=== PATIENT | female | born 1995 | race Caucasian/White ===

== ENCOUNTER 2025-03-08 12:02 | Inpatient (IN) | payer MEDICAID, OTHER ==
[2025-03-08] VITALS (16 sets, daily range): BP systolic 101–145; BP diastolic 56–82; PULSE 53–77; RESP 11–21; TEMP 98.5; O2SAT 98–100
[~2025-03-08] VITALS: Ht 165.1 cm; Wt 95.2 kg
[~2025-03-08 12:02] MED LIST: CYCL-1 PO; IBUP-1986 PO; NO HOME MEDS; TRAM50TA2 PO
[2025-03-08 12:32] LABS: MEAN PLATELET VOLUME 8.6 FL (7.4-10.4); RED CELL DISTRIBUTION WIDTH 13.5 % (11.5-14.5)
[2025-03-08 12:39] LABS: LEUKOCYTE ESTERASE ,URINE NEGATIVE (Neg); NITRITES, URINE NEGATIVE (Neg); OCCULT BLOOD,URINE SMALL (Neg)
[2025-03-08 12:40] LABS: URINE HCG NEGATIVE (NEG)
[2025-03-08 12:43] LABS: UA COLLECTION TYPE CLN CATCH MIDSTREAM
[2025-03-08 12:45] LABS: MUCUS STRANDS NONE SEEN /LPF (Neg); SQUAMOUS EPITHELIAL CELL,UR FEW /LPF (FEW)
[2025-03-08 12:50] LABS: CREATININE 0.87 MG/DL (0.40-0.90); TOTAL CARBON DIOXIDE 27.1 MMOL/L (24-32); eCRCL 86 ML/MIN; eGFR 77 ML/MIN
--- NOTE | 2025-03-08 12:56 | Physician Documentation ---
History of Present Illness Chief Complaint: Abdominal Pain Stated Complaint: GALL BLADDER PAIN Time Seen by MD: 12:24 Primary Medical Doctor: dominick Mode of Arrival: Dropped Off HPI This 29-year-old female patient comes in for LUQ pain. pt is having nausea. pt has been getting a workup out pt for her gallbladder from [facility]. Dr. Borjas is aware of this patient and plans on taking the patient to the OR for cholecystectomy. [facility] Day of Onset: Mar 08, 2025 Medication Reconciliation Allergies: Coded Allergies: No Known Allergies (Unverified , 03/08/25) Scheduled Ibuprofen (Ibuprofen), 2 TAB PO Q6H, (Reported) Discontinued Medications Cyclobenzaprine* (Cyclobenzaprine*), 1 TABLET PO Q8H PRN for muscle spasms Discontinued Reason: Other Home Med List (No Home Medications), (Reported) Discontinued Reason: Other Ibuprofen (Ibuprofen), 1 TAB PO Q8H Discontinued Reason: Other Past Medical History Past Medical History: Anxiety Past Surgical History: orthopedic surgeries Smoking Status: Never smoker Alcohol Use: Occasionally Drug Use: marijuana Lives with: Family Lives In: Home Occupation: student Review of Systems All Other Systems at this time: Reviewed and Negative ROS As stated above in the HPI, otherwise all systems are reviewed and negative. Physical Exam Vital Signs: Temperature: 97.3, Source: Oral, Heart Rate: 61, Respiratory Rate: 12, BP: 129/70, Pulse Oximetry: 97, Weight: 95.200 Physical Exam General: Alert, no apparent distress. Gastrointestinal: Soft, tender right upper quadrant bowel sounds present Skin: Normal color, warm and dry. No edema, no ecchymosis. Progress Results/Orders Results/Orders Vital Signs 03/08/25 03/08/25 03/08/25 12:07 12:46 12:49 Temp 97.3 97.3 Pulse 77 61 Resp 18 18 12 B/P (MAP) 129/70 (89) Pulse Ox 98 97 Laboratory Tests Test 03/08/25 12:18 03/08/25 12:29 White Blood Count 6.9 Red Blood Count 4.64 Hemoglobin 14.3 Hematocrit 42.6 Mean Corpuscular Volume 91.8 Mean Corpuscular Hemoglobin 30.7 Mean Corpuscular Hemoglobin Concent 33.4 Red Cell Distribution Width 13.5 Platelet Count 365 Mean Platelet Volume 8.6 Neutrophils (%) (Auto) 55.6 Lymphocytes (%) (Auto) 37.4 Monocytes (%) (Auto) 2.9 Eosinophils (%) (Auto) 3.4 Basophils (%) (Auto) 0.7 Neutrophils # (Auto) 3.8 Lymphocytes # (Auto) 2.6 Monocytes # (Auto) 0.2 Eosinophils # (Auto) 0.2 Basophils # (Auto) 0.1 CBC Comment Sodium Level 140 Potassium Level 4.4 Chloride Level 106 Carbon Dioxide Level 27.1 Anion Gap 7 L Blood Urea Nitrogen 10 Creatinine 0.87 Estimated GFR/1.73 m2 77 BUN/Creatinine Ratio 11.5 Glucose Level 117 H Calcium Level 9.0 Total Bilirubin 0.5 Aspartate Amino Transf (AST/SGOT) 27 Alanine Aminotransferase (ALT/SGPT) 70 Alkaline Phosphatase 85 Total Protein 7.3 Albumin 4.0 Globulin 3.3 Albumin/Globulin Ratio 1.2 Amylase Level 47 Lipase 22 Chemistry Comments Urine Specimen Description Cln catch midstream Urine Color Yellow Urine Clarity Clear Urine pH 6.0 Urine Specific [place] 1.020 Urine Protein Negative Urine Glucose (UA) Negative Urine Ketones Negative Urine Occult Blood Small Urine Nitrite Negative Urine Bilirubin Negative Urine Urobilinogen 0.2 Urine Leukocyte Esterase Negative Urine RBC 3-10 Urine WBC 0-4 Urine Squamous Epithelial Cells Few Urine Bacteria None seen Urine Mucus None seen Urine Culture Indicated Not ind Volume Urine Centrifuged 10 ml Urine HCG, Qualitative Negative Urine Comment Medical Decision Making Findings OR team at bedside and transporting patient to the OR. Admitting hospitalist will care for the patient after surgery Differential Dx:Considerations: Include: AAA, -Complete, - Incomplete, -Inevitable, -Missed, -Threatened, Abruptio placentae, Angina/CT, Aortic dissection, Appendicitis, Bowel obstruction, Cholangitis, Cholelithasis, Constipation, Diverticular disease, Esophageal rupture, Esophagitis, Gastritis/PUD, Gastroenteritis, GI hemorrhage, Hernia, Hepatitis, Inflammatory BD, Ischemic bowel, Ovarian cyst/torsion, Pancreatitis, PID, Porphyria, Trauma, intraabdominal, Urinary obstruction, Urinary tract infection, Urolithiasis, Other Departure Disposition: 09 ADMITTED INPATIENT Impression: Primary Impression: Abdominal pain Condition: Stable Referrals: NO PRIMARY CARE PROVIDER (PCP) Signature Scribe Signature: f Attestation: Scribed for Louis Doyle Traveling Storekeeper by Louis Wolf NP . 03/08/25 18:17 LOUIS DOYLE NP Mar 08, 2025 12:56
[2025-03-08] MEDS ORDERED: potassium Cl 40MEQ/1/2NS 520ml 520 ML IV PRN (13:15)
[2025-03-08] MEDS ORDERED: mag hydrox/Alum hydrox/simeth 30ml oral suspension PO PRN (13:15)
[2025-03-08] MEDS ORDERED: magnesium sulf-water 2g/50mL 50 ML IV PRN (13:15)
[2025-03-08] MEDS ORDERED: potassium Cl 20 mEq SR tablet PO PRN ×2 (13:15)
[2025-03-08] MEDS ORDERED: ondansetron/PF 4mg/2ml inj IV PRN ×2 (13:15→16:25)
[2025-03-08] MEDS ORDERED: magnesium sulf-water 4G/100mL 100 ML IV PRN (13:15)
[2025-03-08] MEDS ORDERED: magnesium Cl slow-release 64mg tablet PO PRN (13:15)
[2025-03-08] MEDS ORDERED: magnesium hydroxide 30ml (MOM) UD suspension PO PRN (13:15)
[2025-03-08] MEDS ORDERED: BUPIVAcaine 2.5mg/ml inj 50ml vial (contains preservative) ONE (13:34)
[2025-03-08] MEDS ORDERED: ceFOXitin 2GM-NS 100mL ADDvant 100 ML IV ONE (13:35)
[2025-03-08] MEDS ORDERED: CefTRIAXone 2gm/D5W 50ml BAG 50 ML IV ONE (13:36)
[2025-03-08] MEDS ORDERED: IBUP-2697 PO (13:37)
--- NOTE | 2025-03-08 13:47 | PROGRESS NOTE ---
Progress Note ID Providers to CC ~ Progress Note Progress Note: discussed procedure including risks/benefits/alternatives AILEEN AKHTAR MD Mar 08, 2025 13:47
[2025-03-08] MEDS ORDERED: ceFOXitin sod/dextrose 2g/50ml 50 ML IV ONE (14:00)
[2025-03-08] MEDS ORDERED: fentaNYL /PF 50mcg/ml 5ml ampule ONE (14:48)
[2025-03-08] MEDS ORDERED: midazolam 1 mg/ML 2ml injection ONE (14:48)
[2025-03-08] MEDS: BUPIVAcaine/PF 2.5 mg/ml (0.25%) 30ml vial IJ ONE (15:07)
[2025-03-08] MEDS ORDERED: propofol inj 20 ML IV ONE (15:21)
[2025-03-08] MEDS ORDERED: rocuronium 10mg/ml inj IV ONE (15:21)
[2025-03-08] MEDS ORDERED: dexamethasone sod phosphate 4mg/ml inj. ONE (15:21)
[2025-03-08] MEDS ORDERED: LIDOcaine 2% (20mg/ml) 5ml vial ONE (15:21)
[2025-03-08] MEDS ORDERED: ondansetron/PF 4mg/2ml inj ONE (15:21)
[2025-03-08] MEDS ORDERED: acetaminophen 1,000mg/100ml IV 100 ML IV ONE (15:25)
--- NOTE | 2025-03-08 15:43 | OPERATIVE REPORT ---
Operative Report Providers to CC ~ Date of Procedure: Mar 08, 2025 Pre-Operative Diagnosis: CHOLELITHIASIS Post-Operative Diagnosis SAME as PRE-Op Procedure Performed SINA ROMO Surgeon: HERMILO Drapery Maker NONE Anesthesiologist: Preston Vega Type of Anesthesia: General Findings: DISTENDED GB Estimated Blood Loss: MIN Specimen Removed: GB AILEEN AKHTAR MD Mar 08, 2025 15:43
[2025-03-08] MEDS ORDERED: glycopyrrolate 0.2mg/ml inj ONE (15:48)
[2025-03-08] MEDS: ketorolac trometh 15mg/ml vial 15 MG/ML ML IV ONE (16:17)
[2025-03-08] MEDS: morphine 10mg/ml inj. IV ONE (16:20)
[2025-03-08] MEDS ORDERED: enalaprilat 1.25mg/ml 2ml vial IV PRN (16:25)
[2025-03-08] MEDS ORDERED: labetalol 20mg/4ml (5mg/ml) syringe IV PRN (16:25)
[2025-03-08] MEDS ORDERED: ringers solution, lacted 1,000 ML IV SCH (16:25)
[2025-03-08] MEDS ORDERED: meperidine/PF 25mg/ml syringe IV PRN ×3 (16:25)
[2025-03-08] MEDS: morphine 4 MG/ML inj SYRINge IV PRN (16:31)
[2025-03-08] MEDS ORDERED: HYDROmorphone/PF 0.2 MG/ML SYRINGE IV PRN ×2 (17:00)
[2025-03-08] MEDS: HYDROcodone/acetaminophen 5mg/325mg tablet PO PRN (18:15)
--- NOTE | 2025-03-08 18:15 | HISTORY AND PHYSICAL ---
History & Physical Providers to CC ~ History of Present Illness Reason for Admit\Complaint: Abdominal pain History of Present Illness History of present illness patient is a 29-year-old with no past medical history of significance. Patient was in her usual state of health has had increasing abdominal pain and discomfort has a history of cholelithiasis spoke to Dr. Whitfield who said she could wait or have the surgery more urgently done. She says she is tired of the recurring pain as it interferes with her work and her lifestyle and she would rather have the surgery sooner than later then to postpone it. Dr. Whitfield send the patient to the ER and patient was taken to the OR from there. I am seeing the patient postoperatively after she had a laparoscopic cholecystectomy done and she is doing well. Per the nurse at the bedside states that Dr. Whitfield told her that the patient could be discharged home after 2 hours. Allergies: Coded Allergies: No Known Allergies (Unverified , 03/08/25) Home Medications Home Medications Active Reported Ibuprofen 200 Mg Tablet 2 Tab PO Q6H Past Medical History Past Medical History Past medical history nothing of significance Past surgical history he is a little labrum repair secondary to trauma and wisdom teeth Allergies are NKDA Social history denies any tobacco EtOH or IV drug abuse lives with family is single Family history states mother's side of the family has cancer Review of systems negative for all 10 systems reviewed Exam Vitals: Vital Signs Date Time Temp Pulse Resp B/P (MAP) Pulse Ox O2 Delivery O2 Flow Rate FiO2 03/08/25 18:00 61 13 110/66 (81) 98 Room Air 0.0 03/08/25 15:53 98.1 General: Patient's vital signs are stable she is alert and oriented x4 in no acute distress lying down comfortably speaking in full sentences family at bedside HEENT normocephalic nontraumatic head CVS first and second heart sounds are regular rate rhythm no murmurs gallops or rubs Respiratory system is clear to auscultate bilaterally no rales rhonchi crackles or wheezing Abdomen is soft bowel sounds are positive nontender nondistended surgical sites clean bandaging in place which I did not remove Extremities no clubbing cyanosis or edema Neurological exam no focal deficits Diagnostic Data Last Recorded Lab Results: 03/08/25 1218 03/08/25 1218 Additional Plan Assessment and plan Recurrent abdominal pain secondary to cholelithiasis status post cholecystectomy Plan for DC home in the next couple of hours. Date of Service: Mar 08, 2025 Billing Provider: KATHY MOMIN MD Common Visit Codes: [id number] INP/OBS CARE (HIGH) KATHY MOMIN MD Mar 08, 2025 18:14
[2025-03-08] MEDS ORDERED: HYDR-3964 PO (18:16)
--- NOTE | 2025-03-08 18:24 | DISCHARGE SUMMARY ---
Discharge Summary Providers to CC ~ Discharge Summary Admission Diagnosis: CHOLELITHIASIS Hospital Course DATE OF ADMISSION: 03/08/2025 DATE OF DISCHARGE: 03/08/2025 Discharge Diagnosis\Comment: Cholelithiasis Operations\Procedures: Robotic assisted cholecystectomy Consultants: Dr. Whitfield Complications: None Condition on DC: Stable New Medications: ONDANSETRON ODT 4mg tablet (Ondansetron Odt) 4 Mg Tab.rapdis 1 TAB PO Q6H PRN PRN for nausea/vomiting for 4 Days, #16 TAB 0 Refills Hydrocodone Bit/Acetaminophen (Hydrocodon-Acetaminophen 5-325) 5 Mg-325 Mg Tablet 1 TAB PO Q4H PRN for MODERATE PAIN 4-6 for 7 Days, #20 TAB Discontinued Medications: Ibuprofen (Ibuprofen) 200 Mg Tablet 2 TAB PO Q6H for pain or fever, 0 Refills Discharge Summary: Patient is a 29-year-old that was admitted because she wanted her cholecystectomy done sooner than later as she was having increasing recurrent abdominal pain interfering with her work and lifestyle. Patient was taken to the OR by Dr. Whitfield. And cleared her to be discharged at 8:00 p.m. today per RN at the bedside patient's vital signs were stable her pain was in good control she was discharged home with advice to follow up with the PCP and the surgeon in one week. She was advised on a clear liquid diet and advanced as tolerated. I gave her some [place] and Zofran to help with her symptom control. *Problems/Diagnosis: (1) Abdominal pain Status: Acute Total Time Spent on D/C: > 30 Minutes Date of Service: Mar 08, 2025 Billing Provider: KATHY MOMIN MD Common Visit Codes: [id number]/[id number] DISCH DAY >30min KATHY MOMIN MD Mar 08, 2025 18:24
[2025-03-08] MEDS ORDERED: docusate sod 100mg capsule PO SCH (20:00)
[2025-03-08] MEDS ORDERED: K and/or MAG REPLACEMENT MC SCH (20:00)
--- NOTE | 2025-03-09 05:37 | OPERATIVE REPORT ---
DATE OF SURGERY: 03/08/2025 DICTATING PHYSICIAN: William Whitfield MD PREOPERATIVE DIAGNOSIS: Symptomatic cholelithiasis. POSTOPERATIVE DIAGNOSIS: Symptomatic cholelithiasis. PROCEDURE PERFORMED: Robotic cholecystectomy. SURGEON: William Whitfield MD RESPIRATORY SUPPORT TECHNICIAN: None. ANESTHESIA: General/Dr. Vega. DRAINS: None. INDICATIONS FOR OPERATION: A 29-year-old female with recurrent abdominal pain, found to have symptomatic cholelithiasis, taken to Surgery for a robotic cholecystectomy. INTRAOPERATIVE FINDINGS: Distended gallbladder. DESCRIPTION OF PROCEDURE: The patient was placed supine on the operating table. After the induction of general anesthesia and placement of endotracheal tube, the abdomen was prepped and draped. A subumbilical incision was then made and Aaron port placed using open technique. Pneumoperitoneum was then begun by insufflation of CO2. Additional ports were placed in left lower quadrant and right lateral abdomen. Robot was then brought to the field. Camera port docked. Camera placed, camera targeted. Additional ports were then docked and instruments placed. Abdomen was then explored. The gallbladder fundus was grasped and retracted cephalad. Cystic duct identified, isolated, ligated, clipped and divided the cystic artery. The gallbladder was mobilized off the gallbladder fossa using electrocautery. Hemostasis was found to be adequate. Robotic instruments were removed from the field. Gallbladder was placed in an Endobag using the laparoscope. Ports were removed under laparoscopic vision with no evidence of active bleeding. Final port and camera were withdrawn along with the gallbladder in the Endobag. Pneumoperitoneum was evacuated. Wounds were closed in layers. Skin closed with subcuticular stitches. Dressing applied, and the patient was transferred to recovery in stable condition in stable condition after reversing from general anesthesia. William Whitfield MD TID: [id number] RECEIPT: [id number] ALEIDA/CAROLYNN
[2025-03-09] MEDS ORDERED: enoxaparin 40mg/0.4ml syringe SUBCUT SCH (08:00)
== END 2025-03-08 18:43 | disposition home or self-care (01) | DRG 419 ==
LOC: ER 12:03 → ED HOLD 13:21
PROVIDERS: ADMIT Internal Medicine; ATTEND Internal Medicine
PROC: 8E0W4CZ Robotic Assisted Procedure of Trunk Region, Percutaneous Endoscopic Approach (ICD-10-PCS; 2025-03-08)
PROC: 0FT44ZZ Resection of Gallbladder, Percutaneous Endoscopic Approach (ICD-10-PCS; principal; 2025-03-08 14:51)
DX: K80.20 Calculus of gallbladder without cholecystitis without obstruction (principal); K82.8 Other specified diseases of gallbladder; F41.9 Anxiety disorder, unspecified
CPT/HCPCS: 99285; Z7506; Z7508; 36415; 80053; 81001; 81025; 82150; 83690; 85025; A4215; A4618; A7000; G0378; J0131; J1100; J1885; J2003; J2250; J2270; J2274; J2405; J2704; J2710; J3010; J3490; J7120